=== PATIENT | male | born 1995 | race Caucasian/White ===

== ENCOUNTER 2017-06-03 04:27 | Emergency (ER) | payer OTHER ==
[~2017-06-03] VITALS: Ht 175.3 cm; Wt 93.2 kg
[2017-06-03 04:26] VITALS: TEMP 37.3; Ht 175.3 cm; Wt 93.2 kg
[~2017-06-03 04:27] MED LIST: CALC500C3 PO
[2017-06-03] MEDS ORDERED: GELATIN SPONGE 12-7MM ONE ×2 (04:31→04:34)
[2017-06-03] MEDS ORDERED: CEFAZOLIN SOD 1000MG/55 ML D5W IV STA (05:01)
[2017-06-03] MEDS ORDERED: CEPH500C2 PO (06:43)
[2017-06-03] MEDS ORDERED: CEPHALEXIN 500MG HOME PACK 1 EA BTL PO ONE (06:45)
--- NOTE | 2017-06-03 07:27 | DIAGNOSTIC IMAGING REPORT ---
LEFT FINGER(S) MIN 2 VIEWS ROUTINE CLINICAL HISTORY: 21 years-old Male presenting with avulsion. TECHNIQUE: Frontal, oblique, and lateral views of the left first finger were obtained. COMPARISON: None. FINDINGS: Large soft tissue defect along the distal volar aspect of the first finger without significant underlying osseous defect. The interphalangeal joint of the left first finger is intact. No acute fracture or subluxation. IMPRESSION: 1. No acute osseous injury of the left first finger. 2. Large soft tissue defect at the distal volar aspect of the first finger. Electronically signed by: Margarito York M.D. 06/03/2017 7:26 AM Dictated Date/Time: 06/03/2017 7:24 AM
[2017-06-03] MEDS ORDERED: IBUPROFEN 800 MG TAB PO STA (07:52)
[2017-06-03 08:00] VITALS: BP 132/81; PULSE 98; O2SAT 96
--- NOTE | 2017-06-04 03:22 | EMERGENCY ROOM VISIT NOTE ---
ED Visit Note First contact with patient: 04:35 CHIEF COMPLAINT: Finger tip laceration HISTORY OF PRESENT ILLNESS: This 21 to patient presents to the emergency department after cutting the distal tip off of his left thumb while playing a knife game with his friend. The bleeding has not stopped. Denies weakness or numbness of the finger. The patient has full range of motion of the fingers. The patient rates the pain as throbbing and 6/10. The patient denies any other injuries. The patient's tetanus shot is up to date. REVIEW OF SYSTEMS: A 6 system review of systems was completed with positives and pertinent negatives listed in the HPI. ALLERGIES: none MEDICATIONS: none PMH: none SOCIAL HISTORY: No drug use PHYSICAL EXAM: Vital Signs: Reviewed Nurse's notes, vital signs stable. GENERAL : White male with EtOH or, in no acute distress, well developed, well nourished. SKIN: There is a 2 cm x 1.5 cm skin avulsion to the distal aspect of the left thumb with palpable bone. The edges do not gape with traction. There is no foreign material in the wound and it looks clean. There is bleeding. The distal phalanx is visualized at the base of the wound. Extension and flexion of the finger is full and strong. Full range of motion of the wrist and other fingers. Capillary refill less than 2 seconds. Normal sensation to light and sharp touch. EMERGENCY DEPARTMENT COURSE: I examined the patient. Using sterile technique the wound was cleansed. X-ray of the thumb was reviewed and the skin is avulsed off to the tip of the thumb of the distal phalanx per my interpretation. Patient was given a gram of Ancef for extensive wound injury. I consulted orthopedics in fact with Dr. Lanier and will come in and evaluate the patient. He came in and saw the patient. Please see his dictation for further information regarding his treatment. Pt was advised to take antibiotics as directed and to follow-up with hand specialist tomorrow or here in the ER sooner for severe pain, fevers, redness, worsening signs or symptoms or as needed. The patient was discharged home in good condition. DIAGNOSIS: Left thumb fingertip skin avulsion with exposed bone DISCHARGE INSTRUCTIONS & TREATMENT: Cephalexin(Keflex) 500mg: Take one pill four times daily for 10 days. All antibiotics can cause diarrhea. If this occurs and you feel worse or it does not resolve in 1-2 days follow up with your doctor or return to the Emergency Department as this could be signs of serious underlying problems. Any medication can cause an allergic reaction, stop the pills immediately and return to the ER for rash, hives, breathing difficulties, or swelling. Leave bandages intact. Ibuprofen(Motrin, Advil) may be used for fever or pain. Use 600mg every six hours as needed. Take with food. Avoid using more than 2400mg in a 24 hour period. Do not use 2400mg per day for more than three consecutive days without physician direction. Prolonged inappropriate use can lead to stomach upset or ulcers. This medication can be taken if you need to drive, work, or perform activities which may be dangerous when taking narcotic pain medication. (AND/OR) Acetaminophen(Tylenol) may be used for fever or pain. Use 1000mg every six hours as needed. Avoid using more than 3000mg in a 24 hour period. This medication can be taken if you need to drive, work, or perform activities which may be dangerous when taking narcotic pain medication. Rest and elevate your injury. Continue current medications. Return to the ER immediately for any numbness, tingling, severe pain, extreme swelling in the extremity or as needed. Call Orthopedics tomorrow to arrange follow up for your injury. Current/Historical Medications Scheduled Cephalexin Monohydrate (Keflex), 500 MG PO QID Allergies Coded Allergies: No Known Allergies (Unverified , 08/15/16) Vital Signs Date Time Temp Pulse Resp B/P (MAP) Pulse Ox O2 Delivery O2 Flow Rate FiO2 06/03/17 08:00 98 16 132/81 96 Room Air 06/03/17 07:34 90 16 132/80 96 Room Air 06/03/17 07:02 88 20 128/75 95 Room Air 06/03/17 04:26 37.3 104 18 158/93 94 Room Air Medications Administered Medications (Trade) Dose Ordered Sig/Pan Route Start Time Stop Time Status Last Admin Dose Admin Cefazolin Sodium (Ancef 1000mg/55 ml D5W) 1,000 mg NOW STAT IV 06/03/17 05:01 06/03/17 05:02 DC 06/03/17 05:01 1,000 MG Cephalexin Monohydrate (Keflex 500MG Home Pack) 1 homepack NOW ONCE PO 06/03/17 06:45 06/03/17 06:46 DC 06/03/17 07:47 1 HOMEPACK Ibuprofen (Motrin Tab) 800 mg NOW STAT PO 06/03/17 07:52 06/03/17 07:53 DC 06/03/17 07:56 800 MG Departure Information Prescriptions Cephalexin Monohydrate (KEFLEX) 500 Mg Cap 500 MG PO QID for 9 Days, #36 CAP Prov: Claire Tong ., POP 06/03/17 Referrals [facility] (PCP) Patient Instructions [facility]
--- NOTE | 2017-06-14 08:33 | Orthopedic Consultation ---
Orthopedic Consultation Date of Consultation: Jun 14, 2017. Attending Physician: Reason for Consultation: Left 1st digit finger tip amputation History of Present Illness 21 yo male seen at [facility] ED on 06/03/17 with injury to his 1st digit of his left hand. He reported playing a game with a large knife earlier in the evening when he cut his hand and subsequently came to the ED for evaluation. Denies any additional injuries. Past Medical/Surgical History Medical Problems: (1) Avulsion of skin of left thumb Status: Acute Family History Gallbladder disease Social History Smoking Status: Never Smoker Marital Status: single Occupation Status: [employer] student Allergies Coded Allergies: No Known Allergies (Unverified , 08/15/16) Review of Systems Constitutional: No fever, No chills, No sweats, No weight loss, No weakness, No fatigue, No problem reported Musculoskeletal: + joint pain, + muscle pain, + swelling, + calf pain, + problem reported (as mentioned in HPI) Neurologic: + weakness, No memory loss, No paralysis, No numbness/tingling, No vertigo, No balance problems, No problem reported Integumentary: + rash, + itch, + new/changing skin lesions, + color change, + bleeding, + problem reported (As mentioned in HPI) Physical Exam NAD, intoxicated LUE NVSI +M/R/U/AIN/PIN SILT grossly, +2 radial pulse, compartments soft NT 2x1.5 cm laceration to the volar distal aspect of the 1st digit actively flexes and extends digit without loss of motion no exposed bone Assessment & Plan 21 yo male with 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 Gant Sunday06/04/17 for surgical planing XR Left hand demonstrates soft tissue disruption of the distal aspect of the 1st digit without bony involvement.
== END 2017-06-03 08:23 | disposition home or self-care (01) ==
LOC: EDBD 04:27 → C.EDA 04:29
DX: S61.012A Laceration without foreign body of left thumb without damage to nail, initial encounter (principal); W26.0XXA Contact with knife, initial encounter; Y92.9 Unspecified place or not applicable